=== PATIENT | female | born 1990 | race Caucasian/White ===

== ENCOUNTER 2022-06-13 16:27 | Emergency (ER) | payer OTHER ==
[~2022-06-13] VITALS: Ht 160 cm; Wt 54.9 kg
[2022-06-13 16:42] VITALS: BP 146/94
[2022-06-13] MEDS ORDERED: KETOROLAC 30 MG/ML VIAL IM ONE (17:00)
[2022-06-13 17:19] LABS: BASOPHILS % (AUTO) 0.6 % (0.0-2.0); EOSINOPHILS # (AUTO) 0.1 K/uL (0-0.4); EOSINOPHILS % (AUTO) 0.8 % (0.0-4.0); HEMATOCRIT 38.4 % (36-48); HEMOGLOBIN 13.1 g/dL (12.0-16.0); LYMPHOCYTES % (AUTO) 24.4 % (20.5-51.1); MEAN CORPUSCULAR HEMOGLOBIN 30 pg (27-31); MEAN CORPUSCULAR HGB CONC 34 g/dL (33-37); MEAN CORPUSCULAR VOLUME 88.9 fL (80-94); MONOCYTES # (AUTO) 0.5 K/uL (0.8-1.0); MONOCYTES % (AUTO) 6.3 % (1.7-9.3); NEUTROPHILS # (AUTO) 5.4 K/uL (1.8-7.7); NEUTROPHILS % (AUTO) 67.9 % (42.2-75.2); PLATELET COUNT (AUTO) 397 K/uL (140-450); RED BLOOD CELL COUNT(AUTO) 4.32 MIL/uL (4.20-5.40); RED CELL DISTRIBUTION WIDTH 13.8 % (11.6-13.7)
[2022-06-13 17:21] LABS: BILIRUBIN,URINE NEGATIVE (NEGATIVE); BLOOD, URINE NEGATIVE (NEGATIVE); COLOR,URINE YELLOW (YELLOW); LEUKOCYTE ESTERASE ,URINE 1+ (NEGATIVE); NITRITE, URINE POSITIVE (NEGATIVE); UGLUCOSE NEGATIVE (NEGATIVE)
[2022-06-13 17:23] LABS: APPEARANCE,URINE HAZY (CLEAR)
[2022-06-13 17:33] LABS: ALBUMIN 4.7 g/dL (3.4-5.0); ANION GAP 12.5 (8-16); CARBON DIOXIDE 26.2 mmol/L (21-32); CREATININE 0.7 mg/dL (0.6-1.3); POTASSIUM 3.7 mmol/L (3.5-5.1); TOTAL BILIRUBIN 0.7 mg/dL (0.0-1.0)
[2022-06-13 17:44] LABS: RBC,URINE NONE SEEN /HPF (0-5); WBC,URINE 60-80 /HPF (0-5)
--- NOTE | 2022-06-13 17:47 | NUR ---
Neville marmolejo in ED - 06/13/22 at [email or web address] COLON AT BEDSIDE FOR US GUIDED IV
--- NOTE | 2022-06-13 17:50 | NUR ---
32 Y/O FEMALE BIB SELF C/O FOUL SMELLING URINE AND VAGINAL PAIN X2 WEEKS. STATES THAT SHE IS CONCERNED ABOUT STDS OR UTI. LAST SEXUAL CONTACT 3DAYS AGO UNPROTECTED, MULTIPLE SEXUAL CONTACT. DENIES ABD PAIN, NVD, BACK PAIN NKA PMH: DENIES
[2022-06-13] MEDS ORDERED: PYR100 PO (18:16)
[2022-06-13] MEDS ORDERED: IBUP-1842 PO (18:16)
[2022-06-13] MEDS ORDERED: CEPH-588 PO (18:16)
[2022-06-13] MEDS ORDERED: ONDA-188 PO (18:16)
[2022-06-13 18:55] VITALS: BP 125/87
--- NOTE | 2022-06-13 18:55 | NUR ---
DISPO AND MEDICAL DECISION MAKING, DC HOME WITH E-RX AND AFTERCARE INSTRUCTIONS. ALL INSTRUCTIONS UNDERSTOOD BY PATIENT WELL. VS WNL, DC AMBULATORY, VS WNL.
[2022-06-16] MEDS ORDERED: NITR100C7 PO (17:29)
--- NOTE | 2022-06-16 17:36 | NUR ---
Neville marmolejo in ED - 06/17/22 at 0954 by [email or web address] LATE ENTRY. RECEIVED POSITIVE URINE CULTURE. FORM GIVEN TO DR HECTOR. TREATMENT APPROPRIATE. FORM PLACED IN BINDER.
--- NOTE | 2022-06-16 17:36 | NUR ---
LATE ENTRY. RECEIVED POSITIVE URINE CULTURE. FORM GIVEN TO DR HECTOR. NEW RX SENT TO [facility]. DR HECTOR CALLED AND SPOKE WITH PT DIRECTLY. FORM PLACED IN BINDER.
== END 2022-06-13 18:55 | disposition home or self-care (01) ==
LOC: MED 16:27
DX: N39.0 Urinary tract infection, site not specified (principal); Z79.899 Other long term (current) drug therapy; Z79.2 Long term (current) use of antibiotics; Z79.1 Long term (current) use of non-steroidal anti-inflammatories (NSAID)
CPT/HCPCS: 36415; 80053; 81001; 81025; 83690; 85025; 87086; 87491; 96372; 99283; J1885